=== PATIENT | female | born 1945 | race Caucasian/White ===

== ENCOUNTER 2021-06-26 03:56 | Emergency (ER) | payer MEDICARE ==
[~2021-06-26 03:56] MED LIST: KEFLEX CAP 500500 MG PO; NORCO 5-325 TA1 EACH PO
[2021-06-26 04:29] LABS: RED BLOOD COUNT 4.68 M/UL (4.00-5.10); WHITE BLOOD COUNT 8.1 K/UL (4.5-11.0)
[2021-06-26 05:10] LABS: BUN/CREATININE RATIO 22 (0-10)
[2021-06-26] MEDS ORDERED: MOLNUPIRAVIR (200 MG PO ×2 (07:01→07:13)
[2021-06-26] MEDS ORDERED: PAXLOVID CO-PA1 EACH PO ×2 (07:01→07:13)
[2021-06-26] MEDS ORDERED: ZOFRAN ODT 4 MG4 MG GT (07:03)
== END 2021-06-26 07:52 | disposition home or self-care (01) ==
LOC: ER1 03:56
PROVIDERS: Family Medicine
DX: U07.1 COVID-19 (principal); E11.9 Type 2 diabetes mellitus without complications
CPT/HCPCS: 0240U; 36600; 71045; 80053; 81001; 82550; 82553; 82803; 83605; 83690; 84484; 85025; 87040; 93005; 96374; 96375; 99285; J0456; J0696; J1100; J2405; Q9967

== ENCOUNTER → 2021-07-29 | Day surgery (SDC) | payer MEDICARE ==
[~2021-07-29] MED LIST changes: +ACCUPRIL 20 MG20 MG PO; +ASPIRIN81 MG PO; +CLOPIDOGREL75 MG PO; +GLYBURIDE-METF1 EACH PO; +LEVOTHYROXINE100 MC2 PO; +METOPROLOL SUCC50 MG PO; +MOLNUPIRAVIR (200 MG PO; +NORVASC5 MG PO; +PAXLOVID CO-PA1 EACH PO; +PRAVASTATIN SOD40 MG PO; +PROTONIX 40 MG40 M1 PO; +ZOFRAN ODT 4 MG4 MG GT
== END | disposition home or self-care (01) ==
LOC: OR 05:43
DX: Z12.11 Encounter for screening for malignant neoplasm of colon (principal); K57.30 Diverticulosis of large intestine without perforation or abscess without bleeding; I10 Essential (primary) hypertension; E03.9 Hypothyroidism, unspecified; E78.5 Hyperlipidemia, unspecified; E11.65 Type 2 diabetes mellitus with hyperglycemia; Z86.010 Personal history of colon polyps; U07.1 COVID-19; K21.00 Gastro-esophageal reflux disease with esophagitis, without bleeding; Z88.5 Allergy status to narcotic agent; Z88.8 Allergy status to other drugs, medicaments and biological substances; Z79.82 Long term (current) use of aspirin; Z79.84 Long term (current) use of oral hypoglycemic drugs; Z79.899 Other long term (current) drug therapy
CPT/HCPCS: 82962; J2704; J7030

== ENCOUNTER 2021-11-02 18:04 | Emergency (ER) | payer MEDICARE ==
[2021-11-02 20:17] LABS: BUN/CREATININE RATIO 23 (0-10)
[2021-11-02 20:25] LABS: HEMOGLOBIN 11.6 gm/dl (12.3-15.3); RED BLOOD COUNT 4.99 M/UL (4.00-5.10); WHITE BLOOD COUNT 5.4 K/UL (4.5-11.0)
== END 2021-11-02 23:01 | disposition home or self-care (01) ==
LOC: ER1 18:04
PROVIDERS: Family Medicine
DX: K22.2 Esophageal obstruction (principal); I10 Essential (primary) hypertension; E78.00 Pure hypercholesterolemia, unspecified; Z20.822 Contact with and (suspected) exposure to COVID-19; E11.9 Type 2 diabetes mellitus without complications
CPT/HCPCS: 71046; 80053; 82550; 82553; 84484; 85025; 93005; 96374; 99284; C9113; U0002

== ENCOUNTER → 2021-11-08 | Day surgery (SDC) | payer MEDICARE ==
[~2021-11-08] MED LIST changes: +CARAFATE1 GM PO
== END | disposition home or self-care (01) ==
LOC: OR 07:16
DX: K22.2 Esophageal obstruction (principal); K22.10 Ulcer of esophagus without bleeding; I10 Essential (primary) hypertension; E78.5 Hyperlipidemia, unspecified; K21.9 Gastro-esophageal reflux disease without esophagitis; E11.51 Type 2 diabetes mellitus with diabetic peripheral angiopathy without gangrene; R63.4 Abnormal weight loss; Z68.22 Body mass index [BMI] 22.0-22.9, adult; Z88.5 Allergy status to narcotic agent; Z88.8 Allergy status to other drugs, medicaments and biological substances; Z79.82 Long term (current) use of aspirin; Z79.84 Long term (current) use of oral hypoglycemic drugs; Z79.899 Other long term (current) drug therapy
CPT/HCPCS: 82962; J2704; J7040

== ENCOUNTER → 2021-12-01 | Day surgery (SDC) | payer MEDICARE, OTHER | END | disposition home or self-care (01) | LOC: OR 07:10 | DX: K22.2 Esophageal obstruction (principal); K22.10 Ulcer of esophagus without bleeding; K44.9 Diaphragmatic hernia without obstruction or gangrene; K21.00 Gastro-esophageal reflux disease with esophagitis, without bleeding; I10 Essential (primary) hypertension; E11.9 Type 2 diabetes mellitus without complications; E78.2 Mixed hyperlipidemia; E03.9 Hypothyroidism, unspecified; Z88.1 Allergy status to other antibiotic agents; Z88.8 Allergy status to other drugs, medicaments and biological substances; Z79.02 Long term (current) use of antithrombotics/antiplatelets; Z79.82 Long term (current) use of aspirin; Z86.16 Personal history of COVID-19 | CPT/HCPCS: 82962; J2704; J3010; J7040 ==

== ENCOUNTER → 2022-01-18 | Day surgery (SDC) | payer MEDICARE ==
[~2022-01-18] MED LIST changes: +LEVOTHYROXINE88 MC1 PO
== END | disposition home or self-care (01) ==
LOC: OR 07:07
DX: K22.2 Esophageal obstruction (principal); K44.9 Diaphragmatic hernia without obstruction or gangrene; K21.00 Gastro-esophageal reflux disease with esophagitis, without bleeding; I10 Essential (primary) hypertension; E78.5 Hyperlipidemia, unspecified; E11.9 Type 2 diabetes mellitus without complications; Z79.82 Long term (current) use of aspirin; Z79.01 Long term (current) use of anticoagulants; Z79.84 Long term (current) use of oral hypoglycemic drugs; Z79.899 Other long term (current) drug therapy
CPT/HCPCS: 76000; 82962; J2704; J7040

== ENCOUNTER → 2022-02-07 | Outpatient (CLI) | payer MEDICARE | LOC: KOH-I 12:38 | DX: I10 Essential (primary) hypertension (principal); I65.21 Occlusion and stenosis of right carotid artery | CPT/HCPCS: 93880 ==